=== PATIENT | male | born 1985 | race Caucasian/White ===

== ENCOUNTER 2017-10-23 17:55 | Emergency (ER) | payer SELFPAY ==
[~2017-10-23] VITALS: Ht 193 cm; Wt 115.1 kg
[2017-10-23] MEDS ORDERED: SODIUM CHLORIDE 0.9% 1,000ML IVBOLUS ONE (18:30)
[2017-10-23] MEDS ORDERED: SODIUM CHLORIDE FLUSH 10ML SYR IVF ONE (18:30)
[2017-10-23] MEDS ORDERED: LORazepam 2 MG/ML, 1ML IVPush ONE (18:30)
[2017-10-23] MEDS ORDERED: LORazepam 2 MG/ML, 1ML ONE (18:31)
[2017-10-23 18:37] LABS: HEMATOCRIT 48.1 % (39.2-51.8); HEMOGLOBIN 15.8 g/dL (13.7-18.0); WHITE BLOOD COUNT 6.4 x10^3/uL (3.4-10)
[2017-10-23 18:49] LABS: ASPARTATE AMINO TRANSFERASE 158 U/L (15-37); BLOOD UREA NITROGEN 9 mg/dL (7-18)
[2017-10-23] MEDS ORDERED: CALCIUM GLUCONATE 9.2 MEQ in SODIUM CHLORIDE 0.9% 100 ML IV ONE (19:30)
[2017-10-23] MEDS ORDERED: CALCIUM CARBONATE 500 MG TABLET PO SCH (19:30)
[2017-10-23] MEDS ORDERED: LORazepam 1MG TABLET ONE (20:14)
[2017-10-23] MEDS ORDERED: LORazepam 1MG TABLET PO ONE (20:30)
[2017-10-23 21:20] VITALS: BP 128/72
== END 2017-10-23 21:28 | disposition home or self-care (01) ==
LOC: ED 20:25
DX: F10.20 Alcohol dependence, uncomplicated (principal); F15.10 Other stimulant abuse, uncomplicated; E83.51 Hypocalcemia; E20.9 Hypoparathyroidism, unspecified
CPT/HCPCS: 36415; 80053; 82330; 85025; 93005; 96361; 96365; 96375; 99285; J0610; J2060; J7030

== ENCOUNTER 2017-10-31 21:02 | Emergency (ER) | payer SELFPAY ==
[~2017-10-31] VITALS: Ht 182.9 cm; Wt 100.0 kg
[2017-10-31 21:58] LABS: HEMOGLOBIN 16.5 g/dL (13.7-18.0); WHITE BLOOD COUNT 5.8 x10^3/uL (3.4-10)
[2017-10-31 22:09] LABS: DAU SCREEN DISCLAIMER
[2017-10-31 22:11] LABS: ASPARTATE AMINO TRANSFERASE 100 U/L (15-37); BLOOD UREA NITROGEN 11 mg/dL (7-18)
[2017-10-31 22:18] LABS: ACETAMINOPHEN < 2 mcg/mL (10-30)
[2017-10-31] MEDS ORDERED: ZIPRASIDONE 20 MG INJ IM ONE (22:24)
[2017-10-31] MEDS: ZIPRASIDONE 20 MG INJ IM ONE (22:39)
[2017-11-01 06:01] VITALS: BP 124/79
== END 2017-11-01 07:00 | disposition home or self-care (01) ==
LOC: ED 21:12
DX: E20.0 Idiopathic hypoparathyroidism (principal); F10.20 Alcohol dependence, uncomplicated; F15.20 Other stimulant dependence, uncomplicated
CPT/HCPCS: 36415; 80053; 80307; 80329; 85025; 96372; 99284; J3486; G0479; G0480

== ENCOUNTER 2017-11-18 18:57 | Emergency (ER) | payer OTHER ==
[~2017-11-18] VITALS: Ht 190.5 cm; Wt 112.9 kg
[2017-11-18] MEDS ORDERED: SODIUM CHLORIDE 0.9% 1,000 ML IV ONE (19:23)
[2017-11-18] MEDS ORDERED: ONDANSETRON 2MG/ML, 2ML ONE (19:29)
[2017-11-18] MEDS ORDERED: SODIUM CHLORIDE 0.9% 1,000ML IVBOLUS ONE (19:30)
[2017-11-18] MEDS ORDERED: LORazepam 2 MG/ML, 1ML IVPush ONE (19:30)
[2017-11-18] MEDS ORDERED: LORazepam 2 MG/ML, 1ML ONE (19:30)
[2017-11-18] MEDS ORDERED: SODIUM CHLORIDE FLUSH 10ML SYR IVF ONE (19:30)
[2017-11-18] MEDS ORDERED: ONDANSETRON 2MG/ML, 2ML IVPush ONE (19:30)
[2017-11-18 19:44] LABS: BASOPHILS # (AUTO) 0.08 x10^3/uL (0-0.1); BASOPHILS % (AUTO) 1 % (0-1); EOSINOPHILS # (AUTO) 0.06 x10^3/uL (0-0.4); EOSINOPHILS % (AUTO) 1 % (1-7); LYMPHOCYTES # (AUTO) 1.41 x10^3/uL (1-3.4); LYMPHOCYTES % (AUTO) 16 % (22-44); MD NO; MEAN CORPUSCULAR HEMOGLOBIN 33.1 pg (27.5-34.5); MEAN CORPUSCULAR HGB CONC 34.1 g/dL (33.2-36.2); MEAN CORPUSCULAR VOLUME 97.1 fL (81-97); MEAN PLATELET VOLUME 7.8 fL (7.4-10.4); MONOCYTES # (AUTO) 0.73 x10^3/uL (0.2-0.8); MONOCYTES % (AUTO) 8 % (2-9); NEUTROPHILS # (AUTO) 6.72 x10^3/uL (1.8-6.8); NEUTROPHILS % (AUTO) 75 % (42-75); PLATELET COUNT 279 x10^3/uL (130-400); RED BLOOD COUNT 4.92 x10^6/uL (4.38-5.82); RED CELL DISTRIBUTION WIDTH 13.6 % (9.4-14.8)
[2017-11-18 19:54] LABS: ALANINE AMINOTRANSFERASE 81 U/L (12-78); ALBUMIN 3.6 g/dL (3.4-5.0); ANION GAP 12 mmol/L (5-15); CHLORIDE 106 mmol/L (98-107)
[2017-11-18 19:57] LABS: ALKALINE PHOSPHATASE 116 U/L (45-117); BILIRUBIN,TOTAL 0.6 mg/dL (0.2-1.0); CREATININE 0.97 mg/dL (0.7-1.3)
[2017-11-18] MEDS ORDERED: CALCIUM GLUCONATE 4.6 MEQ in SODIUM CHLORIDE 0.9% 50 ML IV ONE (20:00)
[2017-11-18 22:21] VITALS: BP 122/64
== END 2017-11-18 22:24 | disposition home or self-care (01) ==
LOC: ED 21:29
DX: E86.0 Dehydration (principal); J20.8 Acute bronchitis due to other specified organisms; B96.89 Other specified bacterial agents as the cause of diseases classified elsewhere; E83.51 Hypocalcemia; F17.200 Nicotine dependence, unspecified, uncomplicated
CPT/HCPCS: 36415; 74022; 80053; 82330; 83605; 83690; 84484; 85025; 93005; 96361; 96365; 96375; 99285; J0610; J2060; J2405; J7030

== ENCOUNTER 2018-03-30 15:42 | Emergency (ER) | payer MEDICAID ==
[~2018-03-30] VITALS: Ht 193 cm; Wt 110.0 kg
[2018-03-30] MEDS ORDERED: LEVO25TA2 PO (16:04)
[2018-03-30] MEDS ORDERED: DIPH,PERTUSS(ACELL),TET VAC/PF 0.5 ML IM-VACC ONE (16:30)
[2018-03-30 18:12] VITALS: BP 131/84
== END 2018-03-30 18:36 | disposition home or self-care (01) ==
LOC: ED 17:57
DX: S06.0X0A Concussion without loss of consciousness, initial encounter (principal); S02.2XXA Fracture of nasal bones, initial encounter for closed fracture; S16.1XXA Strain of muscle, fascia and tendon at neck level, initial encounter; E83.51 Hypocalcemia; F10.229 Alcohol dependence with intoxication, unspecified; F17.200 Nicotine dependence, unspecified, uncomplicated; F15.10 Other stimulant abuse, uncomplicated; Y93.89 Activity, other specified; Y92.89 Other specified places as the place of occurrence of the external cause; Y99.8 Other external cause status; Y04.8XXA Assault by other bodily force, initial encounter; Z79.899 Other long term (current) drug therapy
CPT/HCPCS: 36415; 70450; 70486; 72125; 80307; 82330; 99285

== ENCOUNTER 2018-11-01 16:01 | Inpatient (IN) | payer MEDICAID ==
[~2018-11-01] VITALS: Ht 193 cm; Wt 102.9 kg
[~2018-11-01 16:01] MED LIST: LEVO25TA2 PO
--- NOTE | 2018-11-01 16:16 | NUR ---
PT BIB [facility] FROM [facility] FOR SEIZURE LASTING 10 TO 15 MINUTES. PT WAS AT [facility] FOR 3 DAYS FOR ETOH WITHDRAWAL. PT WAS FOUND T[facility]IC [facility]ONIC AND WAS GIVEN 5 MG VERSED IM. PT WAS GIVEN HIS DAILY VAILUM AT [facility] TODAY. PT ALERT TO VERBAL GCS 13. FS 76, 02 SAT 94% RA. PT CONNECTED TO MONITOR. CALL LIGHT WITHIN REACH. SEIZURE PRECAUTIONS IN PLACE. PT IS ALERT TO PERSON, PLACE, AND EVENT.
[2018-11-01 16:56] LABS: BASOPHILS # (AUTO) 0.04 x10^3/uL (0-0.1); BASOPHILS % (AUTO) 1 % (0-1); EOSINOPHILS # (AUTO) 0.29 x10^3/uL (0-0.4); EOSINOPHILS % (AUTO) 7 % (1-7); LYMPHOCYTES # (AUTO) 1.17 x10^3/uL (1-3.4); LYMPHOCYTES % (AUTO) 29 % (22-44); MD NO; MEAN CORPUSCULAR HEMOGLOBIN 32.2 pg (27.5-34.5); MEAN CORPUSCULAR HGB CONC 34.4 g/dL (33.2-36.2); MEAN CORPUSCULAR VOLUME 93.5 fL (81-97); MEAN PLATELET VOLUME 8.6 fL (7.4-10.4); MONOCYTES # (AUTO) 0.41 x10^3/uL (0.2-0.8); MONOCYTES % (AUTO) 10 % (2-9); NEUTROPHILS # (AUTO) 2.12 x10^3/uL (1.8-6.8); NEUTROPHILS % (AUTO) 53 % (42-75); PLATELET COUNT 242 x10^3/uL (130-400); RED BLOOD COUNT 4.48 x10^6/uL (4.38-5.82); RED CELL DISTRIBUTION WIDTH 14.1 % (9.4-14.8)
--- NOTE | 2018-11-01 17:05 | NUR ---
PT IS RESTING IN BED, RESPIRATIONS EQUAL AND NON LABORED. NAD. PT IS CONNECTED TO THE MONITOR. CALL LIGHT WITHIN REACH. NEW [employer] STAFF AT BEDSIDE.
[2018-11-01 17:06] LABS: ANION GAP 6 mmol/L (5-15); CALCIUM 7.2 mg/dL (8.5-10.1); CHLORIDE 107 mmol/L (98-107); CREATININE 1.01 mg/dL (0.7-1.3)
--- NOTE | 2018-11-01 17:49 | NUR ---
HOSPITALIST AT BEDSIDE.
[2018-11-01] MEDS ORDERED: DIAZEPAM 5 MG/ML, 2ML IV PRN (18:00)
[2018-11-01] MEDS ORDERED: LORazepam 1MG TABLET PO PRN (18:00)
[2018-11-01] MEDS ORDERED: DOCUSATE 100 MG CAPSULE PO PRN (18:00)
[2018-11-01] MEDS ORDERED: ALUMINUM/MAG/SIMETHICONE 30 ML UDC PO PRN (18:00)
[2018-11-01] MEDS ORDERED: LIDODERM 5% PATCH TD PRN (18:00)
--- NOTE | 2018-11-01 18:03 | NUR ---
PT IS RESTING IN BED, RESPIRATIONS EQUAL AND NON LABORED. NAD. PT IS CONNECTED TO THE MONITOR. CALL LIGHT WITHIN REACH.
--- NOTE | 2018-11-01 18:08 | NUR ---
REPORT GIVEN TO HUMZA GALAN.
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
[2018-11-01 18:34] VITALS: BP 109/72
[2018-11-01] MEDS: BACLOFEN 10 MG TABLET PO SCH (20:56)
[2018-11-01] MEDS: MAGNESIUM CHLORIDE 64 MG TABLET.DR PO SCH (20:56)
[2018-11-01] MEDS: LORazepam 1MG TABLET PO PRN (21:06)
[2018-11-02 00:41] VITALS: BP 112/65
[2018-11-02] MEDS: LEVOTHYROXINE 25 MCG TABLET PO SCH (04:52)
[2018-11-02 06:31] LABS: CALCIUM 7.5 mg/dL (8.5-10.1); CHLORIDE 107 mmol/L (98-107)
[2018-11-02 06:33] LABS: ANION GAP 8 mmol/L (5-15); CREATININE 0.96 mg/dL (0.7-1.3)
[2018-11-02 08:40] VITALS: BP 114/68
[2018-11-02] MEDS: MAGNESIUM CHLORIDE 64 MG TABLET.DR PO SCH ×3 (09:13→21:45)
[2018-11-02] MEDS: BACLOFEN 10 MG TABLET PO SCH ×2 (09:13→21:45)
[2018-11-02] MEDS: FOLIC ACID 1 MG TABLET PO SCH (09:13)
[2018-11-02] MEDS: MULTIVITAMINS/MINERALS TABLET PO SCH (09:13)
[2018-11-02] MEDS ORDERED: CHLORDIAZEPOXIDE 25 MG CAPSULE PO PRN (09:30)
[2018-11-02] MEDS ORDERED: SODIUM CHLORIDE 0.9% 1,000 ML IV ONE (10:00)
[2018-11-02] MEDS ORDERED: CHLORDIAZEPOXIDE 25 MG CAPSULE ONE (10:12)
[2018-11-02] MEDS: LORazepam 1MG TABLET PO PRN ×3 (10:15→21:45)
[2018-11-02] MEDS ORDERED: CHLORDIAZEPOXIDE 25 MG CAPSULE PO ONE (11:00)
[2018-11-02 13:30] VITALS: BP 101/63
[2018-11-02] MEDS ORDERED: LORazepam 2 MG/ML, 1ML ONE (17:17)
[2018-11-02] MEDS: CHLORDIAZEPOXIDE 25 MG CAPSULE PO SCH (17:24)
[2018-11-02] MEDS ORDERED: LORazepam 2 MG/ML, 1ML IVPush ONE (17:30)
[2018-11-02 20:00] VITALS: BP 120/71
[2018-11-03] VITALS (9 sets, daily range): BP systolic 105–123; BP diastolic 64–81
[2018-11-03 04:58] LABS: ALANINE AMINOTRANSFERASE 22 U/L (12-78); ALBUMIN 3.2 g/dL (3.4-5.0); ANION GAP 6 mmol/L (5-15); CALCIUM 7.4 mg/dL (8.5-10.1); CHLORIDE 107 mmol/L (98-107); CREATININE 1.11 mg/dL (0.7-1.3)
[2018-11-03 05:01] LABS: ALKALINE PHOSPHATASE 53 U/L (45-117); BILIRUBIN,TOTAL 0.3 mg/dL (0.2-1.0)
[2018-11-03] MEDS: LEVOTHYROXINE 25 MCG TABLET PO SCH (06:12)
[2018-11-03] MEDS: FOLIC ACID 1 MG TABLET PO SCH (09:36)
[2018-11-03] MEDS: BACLOFEN 10 MG TABLET PO SCH ×2 (09:36→21:34)
[2018-11-03] MEDS: MAGNESIUM CHLORIDE 64 MG TABLET.DR PO SCH ×2 (09:36→17:51)
[2018-11-03] MEDS: MULTIVITAMINS/MINERALS TABLET PO SCH (09:36)
[2018-11-03] MEDS: CHLORDIAZEPOXIDE 25 MG CAPSULE PO SCH ×3 (09:37→21:34)
[2018-11-03] MEDS: LORazepam 1MG TABLET PO PRN ×2 (13:27→14:42)
[2018-11-03] MEDS ORDERED: LORazepam 2 MG/ML, 1ML IV PRN ×6 (17:00→22:30)
[2018-11-03] MEDS ORDERED: LORazepam 2 MG/ML, 1ML IVPush ONE (17:30)
[2018-11-03] MEDS ORDERED: MAGNESIUM SULFATE PMX 2GM/50ML 50 ML IV ONE (20:30)
[2018-11-03] MEDS ORDERED: LORazepam 1MG TABLET PO PRN ×3 (22:30)
[2018-11-03] MEDS ORDERED: LORazepam 0.5MG TABLET PO PRN (22:30)
[2018-11-03 22:35] LABS: BASOPHILS # (AUTO) 0.04 x10^3/uL (0-0.1); BASOPHILS % (AUTO) 1 % (0-1); EOSINOPHILS # (AUTO) 0.24 x10^3/uL (0-0.4); EOSINOPHILS % (AUTO) 4 % (1-7); LYMPHOCYTES # (AUTO) 1.65 x10^3/uL (1-3.4); LYMPHOCYTES % (AUTO) 29 % (22-44); MD NO; MEAN CORPUSCULAR HEMOGLOBIN 32.3 pg (27.5-34.5); MEAN CORPUSCULAR HGB CONC 34.6 g/dL (33.2-36.2); MEAN CORPUSCULAR VOLUME 93.4 fL (81-97); MEAN PLATELET VOLUME 8.6 fL (7.4-10.4); MONOCYTES # (AUTO) 0.55 x10^3/uL (0.2-0.8); MONOCYTES % (AUTO) 10 % (2-9); NEUTROPHILS # (AUTO) 3.18 x10^3/uL (1.8-6.8); NEUTROPHILS % (AUTO) 56 % (42-75); PLATELET COUNT 259 x10^3/uL (130-400); RED BLOOD COUNT 4.75 x10^6/uL (4.38-5.82); RED CELL DISTRIBUTION WIDTH 13.9 % (9.4-14.8)
[2018-11-03 22:36] LABS: ALANINE AMINOTRANSFERASE 24 U/L (12-78); ALBUMIN 3.3 g/dL (3.4-5.0); ANION GAP 8 mmol/L (5-15); CALCIUM 7.3 mg/dL (8.5-10.1); CHLORIDE 107 mmol/L (98-107)
[2018-11-03 22:39] LABS: ALKALINE PHOSPHATASE 54 U/L (45-117); BILIRUBIN,TOTAL 0.3 mg/dL (0.2-1.0); TOTAL PROTEIN 6.3 g/dL (6.4-8.2)
[2018-11-04 00:03] VITALS: BP 107/68
[2018-11-04] MEDS: LORazepam 2 MG/ML, 1ML IV PRN ×4 (02:02→20:30)
[2018-11-04 04:12] VITALS: BP 112/64
[2018-11-04] MEDS: MULTIVITAMINS/MINERALS TABLET PO SCH (08:21)
[2018-11-04] MEDS: BACLOFEN 10 MG TABLET PO SCH ×2 (08:21→20:30)
[2018-11-04] MEDS: FOLIC ACID 1 MG TABLET PO SCH (08:21)
[2018-11-04] MEDS: LEVOTHYROXINE 25 MCG TABLET PO SCH (08:21)
[2018-11-04] MEDS: CHLORDIAZEPOXIDE 25 MG CAPSULE PO SCH ×3 (08:22→22:46)
[2018-11-04] MEDS: MAGNESIUM CHLORIDE 70MG TAB DR PO SCH ×3 (08:22→22:47)
[2018-11-04] MEDS ORDERED: NICOTINE 14MG/24 HR PATCH.TD24 ONE (09:16)
[2018-11-04] MEDS: NICOTINE 14MG/24 HR PATCH.TD24 TD SCH (09:18)
[2018-11-04 09:40] VITALS: BP 103/61
[2018-11-04] MEDS ORDERED: VALPROATE SODIUM 1,000 MG in SODIUM CHLORIDE 0.9% 100 ML IV ONE (10:00)
[2018-11-04 14:00] VITALS: BP 125/71
[2018-11-04 19:48] VITALS: BP 116/69
[2018-11-04] MEDS: VALPROIC ACID 250 MG CAPSULE PO SCH (20:30)
[2018-11-05 02:00] VITALS: BP 107/63
[2018-11-05] MEDS: LORazepam 2 MG/ML, 1ML IV PRN ×2 (03:24→17:33)
[2018-11-05] MEDS: LEVOTHYROXINE 25 MCG TABLET PO SCH (05:48)
[2018-11-05 05:59] LABS: BASOPHILS # (AUTO) 0.05 x10^3/uL (0-0.1); BASOPHILS % (AUTO) 1 % (0-1); EOSINOPHILS # (AUTO) 0.23 x10^3/uL (0-0.4); EOSINOPHILS % (AUTO) 5 % (1-7); LYMPHOCYTES # (AUTO) 1.54 x10^3/uL (1-3.4); LYMPHOCYTES % (AUTO) 30 % (22-44); MD NO; MEAN CORPUSCULAR HEMOGLOBIN 31.9 pg (27.5-34.5); MEAN CORPUSCULAR HGB CONC 34.4 g/dL (33.2-36.2); MEAN CORPUSCULAR VOLUME 92.8 fL (81-97); MEAN PLATELET VOLUME 8.6 fL (7.4-10.4); MONOCYTES # (AUTO) 0.51 x10^3/uL (0.2-0.8); MONOCYTES % (AUTO) 10 % (2-9); NEUTROPHILS # (AUTO) 2.74 x10^3/uL (1.8-6.8); NEUTROPHILS % (AUTO) 54 % (42-75); PLATELET COUNT 226 x10^3/uL (130-400); RED BLOOD COUNT 4.86 x10^6/uL (4.38-5.82); RED CELL DISTRIBUTION WIDTH 13.6 % (9.4-14.8)
[2018-11-05 06:06] LABS: ANION GAP 8 mmol/L (5-15); CALCIUM 7.4 mg/dL (8.5-10.1); CHLORIDE 108 mmol/L (98-107); CREATININE 1.05 mg/dL (0.7-1.3)
[2018-11-05 07:01] VITALS: BP 99/59
[2018-11-05] MEDS: NICOTINE 14MG/24 HR PATCH.TD24 TD SCH (09:35)
[2018-11-05] MEDS: VALPROIC ACID 250 MG CAPSULE PO SCH ×2 (09:35→21:19)
[2018-11-05] MEDS: CHLORDIAZEPOXIDE 25 MG CAPSULE PO SCH (09:35)
[2018-11-05] MEDS: FOLIC ACID 1 MG TABLET PO SCH (09:35)
[2018-11-05] MEDS: MULTIVITAMINS/MINERALS TABLET PO SCH (09:35)
[2018-11-05] MEDS: BACLOFEN 10 MG TABLET PO SCH ×2 (09:35→21:19)
[2018-11-05] MEDS: LORazepam 1MG TABLET PO PRN ×2 (11:44→21:20)
[2018-11-05 12:20] VITALS: BP 105/64
[2018-11-05] MEDS ORDERED: THIAMINE 200 MG in SODIUM CHLORIDE 0.9% 50 ML IV ONE (13:30)
[2018-11-05] MEDS: CHLORDIAZEPOXIDE 10 MG CAPSULE PO SCH ×2 (16:41→21:20)
[2018-11-05 17:38] VITALS: BP 127/81
[2018-11-05 20:00] VITALS: BP 110/69
[2018-11-05 21:20] VITALS: BP 128/70
[2018-11-06 01:51] VITALS: BP 109/65
[2018-11-06] MEDS: LORazepam 2 MG/ML, 1ML IV PRN (02:19)
[2018-11-06] MEDS: LEVOTHYROXINE 25 MCG TABLET PO SCH (06:29)
[2018-11-06 06:32] VITALS: BP 106/63
[2018-11-06] MEDS: FOLIC ACID 1 MG TABLET PO SCH (08:29)
[2018-11-06] MEDS: THIAMINE 100MG TABLET PO SCH ×2 (08:30→12:30)
[2018-11-06] MEDS: VALPROIC ACID 250 MG CAPSULE PO SCH ×3 (08:30→20:34)
[2018-11-06] MEDS: BACLOFEN 10 MG TABLET PO SCH (08:30)
[2018-11-06] MEDS: CHLORDIAZEPOXIDE 10 MG CAPSULE PO SCH (08:30)
[2018-11-06] MEDS: NICOTINE 14MG/24 HR PATCH.TD24 TD SCH (08:30)
[2018-11-06] MEDS: MULTIVITAMINS/MINERALS TABLET PO SCH (08:30)
[2018-11-06 12:17] VITALS: BP 94/58
[2018-11-06] MEDS ORDERED: CALCIUM CARBONATE 500 MG TABLET PO PRN (13:30)
[2018-11-06] MEDS ORDERED: CALC0.25 PO (13:40)
[2018-11-06] MEDS ORDERED: ONDANSETRON ODT 4 MG ONE (14:09)
[2018-11-06] MEDS: LORazepam 1MG TABLET PO PRN ×2 (14:11→22:30)
[2018-11-06] MEDS ORDERED: ONDANSETRON ODT 4 MG PO PRN (14:30)
[2018-11-06 20:00] VITALS: BP 112/68
[2018-11-06 23:03] VITALS: BP 101/60
[2018-11-06] MEDS ORDERED: LORazepam 2 MG/ML, 1ML IVPush PRN (23:30)
[2018-11-07 02:00] VITALS: BP 97/60
[2018-11-07 04:54] LABS: BASOPHILS # (AUTO) 0.01 x10^3/uL (0-0.1); BASOPHILS % (AUTO) 0 % (0-1); EOSINOPHILS # (AUTO) 0.25 x10^3/uL (0-0.4); EOSINOPHILS % (AUTO) 5 % (1-7); LYMPHOCYTES # (AUTO) 1.96 x10^3/uL (1-3.4); LYMPHOCYTES % (AUTO) 38 % (22-44); MD NO; MEAN CORPUSCULAR HEMOGLOBIN 31.3 pg (27.5-34.5); MEAN CORPUSCULAR HGB CONC 33.5 g/dL (33.2-36.2); MEAN CORPUSCULAR VOLUME 93.4 fL (81-97); MEAN PLATELET VOLUME 8.7 fL (7.4-10.4); MONOCYTES # (AUTO) 0.48 x10^3/uL (0.2-0.8); MONOCYTES % (AUTO) 9 % (2-9); NEUTROPHILS # (AUTO) 2.49 x10^3/uL (1.8-6.8); NEUTROPHILS % (AUTO) 48 % (42-75); PLATELET COUNT 265 x10^3/uL (130-400); RED BLOOD COUNT 4.83 x10^6/uL (4.38-5.82); RED CELL DISTRIBUTION WIDTH 13.5 % (9.4-14.8)
[2018-11-07 05:06] LABS: ANION GAP 4 mmol/L (5-15); CALCIUM 7.6 mg/dL (8.5-10.1); CHLORIDE 108 mmol/L (98-107); CREATININE 0.98 mg/dL (0.7-1.3)
[2018-11-07] MEDS: LEVOTHYROXINE 25 MCG TABLET PO SCH (05:51)
[2018-11-07 06:33] VITALS: BP 100/63
[2018-11-07] MEDS: NICOTINE 14MG/24 HR PATCH.TD24 TD SCH (08:45)
[2018-11-07] MEDS: CALCITRIOL 0.25 MCG CAPSULE PO SCH (08:46)
[2018-11-07] MEDS: VALPROIC ACID 250 MG CAPSULE PO SCH ×3 (08:46→20:30)
[2018-11-07] MEDS: MULTIVITAMINS/MINERALS TABLET PO SCH (08:46)
[2018-11-07] MEDS: FOLIC ACID 1 MG TABLET PO SCH (08:46)
[2018-11-07] MEDS: THIAMINE 100MG TABLET PO SCH ×2 (08:46→09:00)
[2018-11-07 13:35] VITALS: BP 98/59
[2018-11-07] MEDS: LORazepam 1MG TABLET PO PRN ×2 (15:52→21:44)
[2018-11-07] MEDS: ACETAMINOPHEN 325 MG TABLET PO PRN (16:20)
[2018-11-07] MEDS: HEPARIN 5,000 UNITS/ML, 1ML SQ SCH (16:30)
[2018-11-07 20:00] VITALS: BP 111/71
[2018-11-08 01:08] VITALS: BP 101/59
[2018-11-08] MEDS: HEPARIN 5,000 UNITS/ML, 1ML SQ SCH ×3 (01:09→16:30)
[2018-11-08] MEDS: LEVOTHYROXINE 25 MCG TABLET PO SCH (05:39)
[2018-11-08 08:13] VITALS: BP 109/63
[2018-11-08] MEDS: THIAMINE 100MG TABLET PO SCH (09:00)
[2018-11-08] MEDS: CALCITRIOL 0.25 MCG CAPSULE PO SCH (09:19)
[2018-11-08] MEDS: NICOTINE 14MG/24 HR PATCH.TD24 TD SCH (09:20)
[2018-11-08] MEDS: LORazepam 1MG TABLET PO PRN ×3 (09:20→21:30)
[2018-11-08] MEDS: MULTIVITAMINS/MINERALS TABLET PO SCH (09:20)
[2018-11-08] MEDS: FOLIC ACID 1 MG TABLET PO SCH (09:20)
[2018-11-08] MEDS: ACETAMINOPHEN 325 MG TABLET PO PRN ×2 (09:20→14:37)
[2018-11-08] MEDS: VALPROIC ACID 250 MG CAPSULE PO SCH ×3 (09:20→21:29)
[2018-11-08 09:52] LABS: MEAN CORPUSCULAR HGB CONC 34.3 g/dL (33.2-36.2); MEAN CORPUSCULAR VOLUME 93.3 fL (81-97); MEAN PLATELET VOLUME 8.9 fL (7.4-10.4); PLATELET COUNT 243 x10^3/uL (130-400); RED BLOOD COUNT 4.58 x10^6/uL (4.38-5.82); RED CELL DISTRIBUTION WIDTH 13.6 % (9.4-14.8)
[2018-11-08 10:03] LABS: ALANINE AMINOTRANSFERASE 24 U/L (12-78); ALBUMIN 3.2 g/dL (3.4-5.0); ANION GAP 6 mmol/L (5-15); CALCIUM 7.6 mg/dL (8.5-10.1); CHLORIDE 107 mmol/L (98-107); CREATININE 1.17 mg/dL (0.7-1.3)
[2018-11-08 10:05] LABS: ALKALINE PHOSPHATASE 48 U/L (45-117); BILIRUBIN,TOTAL 0.4 mg/dL (0.2-1.0); TOTAL PROTEIN 6.2 g/dL (6.4-8.2)
[2018-11-08 10:37] LABS: BASOPHILS # (AUTO) 0.04 x10^3/uL (0-0.1); BASOPHILS % (AUTO) 1 % (0-1); EOSINOPHILS # (AUTO) 0.23 x10^3/uL (0-0.4); EOSINOPHILS % (AUTO) 6 % (1-7); LYMPHOCYTES # (AUTO) 1.44 x10^3/uL (1-3.4); LYMPHOCYTES % (AUTO) 35 % (22-44); MD SCAN; MONOCYTES # (AUTO) 0.44 x10^3/uL (0.2-0.8); MONOCYTES % (AUTO) 11 % (2-9); NEUTROPHILS # (AUTO) 1.97 x10^3/uL (1.8-6.8); NEUTROPHILS % (AUTO) 48 % (42-75)
[2018-11-08] MEDS ORDERED: VALP250C PO (13:01)
[2018-11-08] MEDS ORDERED: LEVO25TA2 PO (13:01)
[2018-11-08 14:40] VITALS: BP 112/68
[2018-11-08] MEDS ORDERED: ORAJEL 7GM TUBE MM PRN (16:00)
[2018-11-08 18:52] VITALS: BP 118/71
[2018-11-09 02:44] VITALS: BP 106/63
[2018-11-09] MEDS: LORazepam 1MG TABLET PO PRN ×4 (03:08→17:49)
[2018-11-09] MEDS: LEVOTHYROXINE 25 MCG TABLET PO SCH (05:14)
[2018-11-09] MEDS: HEPARIN 5,000 UNITS/ML, 1ML SQ SCH ×2 (05:14→14:03)
[2018-11-09 07:13] VITALS: BP 108/60
[2018-11-09] MEDS: MULTIVITAMINS/MINERALS TABLET PO SCH (08:21)
[2018-11-09] MEDS: VALPROIC ACID 250 MG CAPSULE PO SCH ×2 (08:22→16:16)
[2018-11-09] MEDS: FOLIC ACID 1 MG TABLET PO SCH (08:22)
[2018-11-09] MEDS: CALCITRIOL 0.25 MCG CAPSULE PO SCH (08:22)
[2018-11-09] MEDS: THIAMINE 100MG TABLET PO SCH (08:23)
[2018-11-09] MEDS: NICOTINE 14MG/24 HR PATCH.TD24 TD SCH (08:24)
[2018-11-09 13:52] VITALS: BP 111/68
== END 2018-11-09 18:04 | DRG 101 ==
LOC: ED 16:35 → EDIP 17:29 → 4WST 18:27 → 4EST 11-02 17:39
PROVIDERS: ADMIT Internal Medicine; ATTEND Internal Medicine
DX: R56.9 Unspecified convulsions (principal); F10.239 Alcohol dependence with withdrawal, unspecified; R45.851 Suicidal ideations; F17.203 Nicotine dependence unspecified, with withdrawal; E03.9 Hypothyroidism, unspecified; E20.9 Hypoparathyroidism, unspecified; F32.9 Major depressive disorder, single episode, unspecified; F41.9 Anxiety disorder, unspecified; F99 Mental disorder, not otherwise specified
CPT/HCPCS: 36415; 70450; 70553; 80048; 80053; 80164; 82140; 82306; 82330; 82607; 82962; 83735; 84100; 84443; 85025; 95819; G0378; J1644; J3360; J3411; Q0162; J2060; J3475; J7030

== ENCOUNTER 2019-01-26 00:39 | Emergency (ER) | payer MEDICAID ==
[~2019-01-26] VITALS: Ht 193 cm; Wt 104.0 kg
[~2019-01-26 00:39] MED LIST changes: +CALC0.25 PO; +VALP250C PO
[2019-01-26 00:40] VITALS: BP 107/67
--- NOTE | 2019-01-26 01:44 | NUR ---
Patient/Caregiver given discharge instructions and they have confirmed that they understand the instructions. Patient ambulatory with steady gait.
== END 2019-01-26 01:46 | disposition home or self-care (01) ==
LOC: ED 01:23
DX: F10.129 Alcohol abuse with intoxication, unspecified (principal); Z72.9 Problem related to lifestyle, unspecified; Z90.49 Acquired absence of other specified parts of digestive tract
CPT/HCPCS: 99283

== ENCOUNTER 2019-03-30 18:34 | Inpatient (IN) | payer MEDICAID ==
[~2019-03-30] VITALS: Ht 193 cm; Wt 100.9 kg
--- NOTE | 2019-03-30 19:00 | NUR ---
erp at bs
--- NOTE | 2019-03-30 19:03 | NUR ---
PT CHANGING INTO GOWN IN [facility]. PT EDUCATED ON ER PROCESS AND VERBALIZES UNDERSTANDING.
[2019-03-30] MEDS ORDERED: LORazepam 2 MG/ML, 1ML ONE ×3 (19:19→19:51)
[2019-03-30] MEDS ORDERED: SODIUM CHLORIDE 0.9% 1,000ML IVBOLUS ONE (19:30)
[2019-03-30] MEDS ORDERED: THIAMINE 100 MG in SODIUM CHLORIDE 0.9% 50 ML IVPB ONE (19:30)
[2019-03-30] MEDS ORDERED: SODIUM CHLORIDE FLUSH 10ML SYR IVF ONE (19:30)
[2019-03-30 19:39] LABS: MEAN CORPUSCULAR HEMOGLOBIN 32.4 pg (27.5-34.5); MEAN CORPUSCULAR HGB CONC 33.2 g/dL (33.2-36.2); MEAN CORPUSCULAR VOLUME 97.6 fL (81-97); MEAN PLATELET VOLUME 7.5 fL (7.4-10.4); PLATELET COUNT 281 x10^3/uL (130-400); RED BLOOD COUNT 4.67 x10^6/uL (4.38-5.82); RED CELL DISTRIBUTION WIDTH 15.2 % (9.4-14.8)
[2019-03-30 19:51] LABS: BASOPHILS # (AUTO) 0.03 x10^3/uL (0-0.1); BASOPHILS % (AUTO) 1 % (0-1); EOSINOPHILS % (AUTO) 4 % (1-7); LYMPHOCYTES % (AUTO) 44 % (22-44); MONOCYTES % (AUTO) 10 % (2-9); NEUTROPHILS # (AUTO) 1.21 x10^3/uL (1.8-6.8); NEUTROPHILS % (AUTO) 41 % (42-75)
[2019-03-30 19:52] LABS: MD SCAN
[2019-03-30 19:54] LABS: ALBUMIN 3.4 g/dL (3.4-5.0); ANION GAP 8 mmol/L (5-15); CALCIUM 6.7 mg/dL (8.5-10.1); CHLORIDE 110 mmol/L (98-107); CREATININE 0.91 mg/dL (0.7-1.3)
[2019-03-30] MEDS: LORazepam 2 MG/ML, 1ML IVPush PRN ×3 (20:05→20:18)
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
[2019-03-30] MEDS ORDERED: CALCIUM GLUCONATE 9.2 MEQ in SODIUM CHLORIDE 0.9% 100 ML IV ONE (20:30)
[2019-03-30] MEDS ORDERED: DOCUSATE 100 MG CAPSULE PO PRN (21:00)
[2019-03-30] MEDS ORDERED: LIDODERM 5% PATCH TD PRN (21:00)
[2019-03-30] MEDS ORDERED: LORazepam 2 MG/ML, 1ML IV PRN ×2 (21:00)
[2019-03-30] MEDS ORDERED: LABETALOL 5MG/ML, 20ML IV PRN (21:00)
[2019-03-30] MEDS ORDERED: ONDANSETRON 2MG/ML, 2ML IV PRN (21:00)
[2019-03-30] MEDS ORDERED: ALUMINUM/MAG/SIMETHICONE 30 ML UDC PO PRN (21:00)
[2019-03-30] MEDS ORDERED: PHARMACY INSTRUCTION MC PRN (21:00)
--- NOTE | 2019-03-30 21:08 | NUR ---
ATTEMPTED TO REACH NURSE FOR REPORT. REMAINED ON HOLD. WILL ATTEMPT REPORT AGAIN.
--- NOTE | 2019-03-30 21:21 | NUR ---
PT REPORT CALLED TO ADAMA SUMNER. ALL QUESTIONS ANSWERED. TECH PAGED FOR TRANSPORT AT THIS TIME.
[2019-03-30 21:29] LABS: ALBUMIN 3.4 g/dL (3.4-5.0); BILIRUBIN, DIRECT 0.1 mg/dL (0.1-0.2)
[2019-03-30 21:32] LABS: BILIRUBIN,INDIRECT 0.1 mg/dL (0.0-2.0); BILIRUBIN,TOTAL 0.2 mg/dL (0.2-1.0); TOTAL PROTEIN 6.7 g/dL (6.4-8.2)
[2019-03-30 22:41] VITALS: BP 114/71
[2019-03-30] MEDS: MVI ADULT 10 ML, FOLIC ACID 1 MG in D5%-0.45% NACL 1,000 ML IV SCH (22:46)
[2019-03-31] MEDS: VALPROATE SODIUM 500 MG in DEXTROSE 5% 100 ML IV SCH ×3 (00:21→21:02)
[2019-03-31 01:25] VITALS: BP 119/75
[2019-03-31 05:18] LABS: CHLORIDE 109 mmol/L (98-107); MEAN CORPUSCULAR HEMOGLOBIN 32.5 pg (27.5-34.5); MEAN CORPUSCULAR HGB CONC 33.2 g/dL (33.2-36.2); MEAN PLATELET VOLUME 7.4 fL (7.4-10.4); PLATELET COUNT 199 x10^3/uL (130-400); RED BLOOD COUNT 4.17 x10^6/uL (4.38-5.82); RED CELL DISTRIBUTION WIDTH 15.3 % (9.4-14.8)
[2019-03-31 05:40] LABS: ALANINE AMINOTRANSFERASE 94 U/L (12-78); ALBUMIN 2.8 g/dL (3.4-5.0); ALKALINE PHOSPHATASE 67 U/L (45-117); ANION GAP 7 mmol/L (5-15); BILIRUBIN,TOTAL 0.4 mg/dL (0.2-1.0); CALCIUM 6.6 mg/dL (8.5-10.1); CREATININE 0.82 mg/dL (0.7-1.3); TOTAL PROTEIN 5.6 g/dL (6.4-8.2)
[2019-03-31 05:42] LABS: BASOPHILS # (AUTO) 0.02 x10^3/uL (0-0.1); BASOPHILS % (AUTO) 1 % (0-1); EOSINOPHILS # (AUTO) 0.13 x10^3/uL (0-0.4); EOSINOPHILS % (AUTO) 3 % (1-7); LYMPHOCYTES # (AUTO) 1.08 x10^3/uL (1-3.4); LYMPHOCYTES % (AUTO) 27 % (22-44); MD SCAN; MONOCYTES # (AUTO) 0.35 x10^3/uL (0.2-0.8); MONOCYTES % (AUTO) 9 % (2-9); NEUTROPHILS # (AUTO) 2.42 x10^3/uL (1.8-6.8); NEUTROPHILS % (AUTO) 60 % (42-75)
[2019-03-31] MEDS ORDERED: CALCIUM GLUCONATE 4.6 MEQ/10 ML IVPush ONE (08:30)
[2019-03-31] MEDS ORDERED: POTASSIUM PHOSPHATE 44 MEQ in SODIUM CHLORIDE 0.9% 500 ML IV ONE (08:30)
[2019-03-31] MEDS ORDERED: MAGNESIUM SULFATE 6 GM in SODIUM CHLORIDE 0.9% 150 ML IV ONE (08:30)
[2019-03-31 08:59] VITALS: BP 104/69
[2019-03-31] MEDS ORDERED: NICOTINE 14MG/24 HR PATCH.TD24 TD ONE (09:00)
[2019-03-31] MEDS ORDERED: CALCIUM GLUCONATE 4.6 MEQ in SODIUM CHLORIDE 0.9% 50 ML IV ONE (09:00)
[2019-03-31] MEDS ORDERED: LORazepam 2 MG/ML, 1ML IVPush PRN (09:00)
[2019-03-31] MEDS: MULTIVITAMINS/MINERALS TABLET PO SCH (09:09)
[2019-03-31] MEDS: LORazepam 2 MG/ML, 1ML IV PRN ×2 (09:19→21:02)
[2019-03-31 12:50] VITALS: BP 122/80
[2019-03-31 13:39] LABS: AMPHETAMINE SCREEN, URINE Positive (Negative); BARBITURATE SCREEN, URINE Negative (Negative); BENZODIAZEPINE SCREEN, URINE Positive (Negative); CANNABINOID SCREEN, URINE Positive (Negative); COCAINE SCREEN, URINE Negative (Negative); METHADONE SCREEN, URINE Negative (Negative); OPIATE SCREEN, URINE Negative (Negative)
[2019-03-31 19:24] VITALS: BP 119/70
[2019-03-31] MEDS: MVI ADULT 10 ML, FOLIC ACID 1 MG in D5%-0.45% NACL 1,000 ML IV SCH (23:16)
[2019-04-01 00:53] VITALS: BP 116/77
[2019-04-01] MEDS: LORazepam 2 MG/ML, 1ML IV PRN ×6 (04:13→22:36)
[2019-04-01] MEDS: VALPROATE SODIUM 500 MG in DEXTROSE 5% 100 ML IV SCH ×3 (05:18→21:19)
[2019-04-01 06:40] LABS: MEAN CORPUSCULAR HEMOGLOBIN 31.3 pg (27.5-34.5); MEAN CORPUSCULAR HGB CONC 32.2 g/dL (33.2-36.2); MEAN CORPUSCULAR VOLUME 97.1 fL (81-97); MEAN PLATELET VOLUME 7.8 fL (7.4-10.4); PLATELET COUNT 199 x10^3/uL (130-400); RED BLOOD COUNT 4.27 x10^6/uL (4.38-5.82); RED CELL DISTRIBUTION WIDTH 14.9 % (9.4-14.8)
[2019-04-01 06:47] LABS: ALANINE AMINOTRANSFERASE 79 U/L (12-78); ALBUMIN 2.7 g/dL (3.4-5.0); ANION GAP 7 mmol/L (5-15); CALCIUM 6.9 mg/dL (8.5-10.1); CHLORIDE 109 mmol/L (98-107); CREATININE 0.66 mg/dL (0.7-1.3)
[2019-04-01 06:49] LABS: ALKALINE PHOSPHATASE 77 U/L (45-117); BILIRUBIN,TOTAL 0.6 mg/dL (0.2-1.0); TOTAL PROTEIN 5.6 g/dL (6.4-8.2)
[2019-04-01 07:24] VITALS: BP 115/76
[2019-04-01 07:38] LABS: BASOPHILS # (AUTO) 0.04 x10^3/uL (0-0.1); BASOPHILS % (AUTO) 2 % (0-1); EOSINOPHILS # (AUTO) 0.18 x10^3/uL (0-0.4); EOSINOPHILS % (AUTO) 7 % (1-7); LYMPHOCYTES # (AUTO) 0.64 x10^3/uL (1-3.4); LYMPHOCYTES % (AUTO) 26 % (22-44); MD SCAN; MONOCYTES # (AUTO) 0.26 x10^3/uL (0.2-0.8); MONOCYTES % (AUTO) 10 % (2-9); NEUTROPHILS # (AUTO) 1.38 x10^3/uL (1.8-6.8); NEUTROPHILS % (AUTO) 55 % (42-75)
[2019-04-01] MEDS ORDERED: THIAMINE 100 MG in DEXTROSE 5% 50 ML IVPB SCH (09:00)
[2019-04-01] MEDS: POTASSIUM CHLORIDE 20 MEQ TAB.ER.PRT PO SCH ×2 (10:10→14:07)
[2019-04-01] MEDS: MULTIVITAMINS/MINERALS TABLET PO SCH (10:10)
[2019-04-01] MEDS: MVI ADULT 10 ML, FOLIC ACID 1 MG in D5%-0.45% NACL 1,000 ML IV SCH (11:57)
[2019-04-01] MEDS ORDERED: FOLIC ACID 1 MG TABLET ONE (14:21)
[2019-04-01] MEDS: FOLIC ACID 1 MG TABLET PO SCH (14:25)
[2019-04-01] MEDS: MULTIVITAMIN 1 TABLET PO SCH (14:25)
[2019-04-01] MEDS: D5%-0.45% NACL 1,000 ML IV SCH (18:08)
[2019-04-01 19:04] VITALS: BP 101/61
[2019-04-01] MEDS: THIAMINE 100MG TABLET PO SCH (21:19)
[2019-04-02] MEDS: LORazepam 2 MG/ML, 1ML IV PRN ×4 (00:40→05:16)
[2019-04-02 02:48] VITALS: BP 14/74
[2019-04-02] MEDS: VALPROATE SODIUM 500 MG in DEXTROSE 5% 100 ML IV SCH (05:15)
[2019-04-02] MEDS: D5%-0.45% NACL 1,000 ML IV SCH (05:15)
[2019-04-02 05:51] LABS: ANION GAP 5 mmol/L (5-15); CALCIUM 7.5 mg/dL (8.5-10.1); CHLORIDE 109 mmol/L (98-107)
[2019-04-02 05:52] LABS: CREATININE 0.73 mg/dL (0.7-1.3)
[2019-04-02 08:01] VITALS: BP 106/62
[2019-04-02] MEDS: MULTIVITAMINS/MINERALS TABLET PO SCH (08:06)
[2019-04-02] MEDS: FOLIC ACID 1 MG TABLET PO SCH (08:06)
[2019-04-02] MEDS: THIAMINE 100MG TABLET PO SCH (08:06)
[2019-04-02] MEDS: MULTIVITAMIN 1 TABLET PO SCH (08:06)
[2019-04-02] MEDS ORDERED: THIA100T67 PO (11:50)
[2019-04-02] MEDS ORDERED: MULT1TAB60 PO (11:50)
[2019-04-02] MEDS ORDERED: FOLI-17 PO (11:50)
== END 2019-04-02 12:55 | disposition home or self-care (01) | DRG 641 ==
LOC: ED 19:55 → EDIP 20:18 → 4WST 21:43 → 4NOR 04-01 23:01
PROVIDERS: ADMIT Internal Medicine; ATTEND Internal Medicine
DX: E83.51 Hypocalcemia (principal); R45.851 Suicidal ideations; F10.221 Alcohol dependence with intoxication delirium; F10.231 Alcohol dependence with withdrawal delirium; E21.3 Hyperparathyroidism, unspecified; E87.6 Hypokalemia; E83.42 Hypomagnesemia; E03.9 Hypothyroidism, unspecified; F17.200 Nicotine dependence, unspecified, uncomplicated; Z59.0 Homelessness; D72.819 Decreased white blood cell count, unspecified; F22 Delusional disorders; F41.9 Anxiety disorder, unspecified; Y90.7 Blood alcohol level of 200-239 mg/100 ml
CPT/HCPCS: 36415; 80048; 80053; 80076; 80307; 82040; 82330; 83735; 84100; 84439; 84443; 85025; 93005; 96374; 96375; G0378; J0610; J3411; J3475; J2060; J7030; J7040

== ENCOUNTER 2019-05-02 16:21 | Emergency (ER) | payer MEDICAID ==
[~2019-05-02] VITALS: Ht 193 cm; Wt 98.5 kg
[~2019-05-02 16:21] MED LIST changes: +FOLI-17 PO; +MULT1TAB60 PO; +THIA100T67 PO
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
--- NOTE | 2019-05-02 16:33 | NUR ---
student, Sergio, at bedside to evaluate pt. Pt's now at bedside.
[2019-05-02] MEDS ORDERED: ACETAMINOPHEN 500 MG TABLET PO ONE (17:00)
[2019-05-02] MEDS ORDERED: ACETAMINOPHEN 500 MG TABLET ONE (17:18)
[2019-05-02 17:44] LABS: ANION GAP 9 mmol/L (5-15); CALCIUM 6.8 mg/dL (8.5-10.1); CHLORIDE 110 mmol/L (98-107)
--- NOTE | 2019-05-02 17:50 | NUR ---
PIV removed, tip intact, pt given discharge paperwork, pt continues to sleep on gurmansura, not actively listening to this RN. Pt's , up from the gurney, now collecting items in the room.
[2019-05-02] MEDS ORDERED: PROC10TA2 PO (17:52)
[2019-05-02] MEDS ORDERED: CALC-183 PO (17:52)
--- NOTE | 2019-05-02 18:00 | NUR ---
Pt still sleeping on [place], pt woken up again and told that he has been discharged and it is time to leave, pt nodded his head yes. Pt's found at this time in the cabinet and states "we're taking some bandaids, we need them, pt's with a handful of supplies in her hand." Pt's advised that she may not have any more supplies.
--- NOTE | 2019-05-02 18:10 | NUR ---
A third time, this RN in to advise pt that it is time to leave as he has been discharged. Pt now finally stadning up from [facility] and slowly getting dressed.
[2019-05-02 18:13] VITALS: BP 112/78
== END 2019-05-02 18:18 | disposition home or self-care (01) ==
LOC: ED 18:12
DX: S00.83XA Contusion of other part of head, initial encounter (principal); S00.531A Contusion of lip, initial encounter; S00.12XA Contusion of left eyelid and periocular area, initial encounter; S30.1XXA Contusion of abdominal wall, initial encounter; S30.0XXA Contusion of lower back and pelvis, initial encounter; S50.811A Abrasion of right forearm, initial encounter; S80.812A Abrasion, left lower leg, initial encounter; S80.811A Abrasion, right lower leg, initial encounter; S00.511A Abrasion of lip, initial encounter; G40.909 Epilepsy, unspecified, not intractable, without status epilepticus; E83.51 Hypocalcemia; F20.9 Schizophrenia, unspecified; Z90.49 Acquired absence of other specified parts of digestive tract; F17.200 Nicotine dependence, unspecified, uncomplicated; W18.30XA Fall on same level, unspecified, initial encounter; Y93.89 Activity, other specified; Y92.410 Unspecified street and highway as the place of occurrence of the external cause; Y99.8 Other external cause status
CPT/HCPCS: 36415; 70450; 72125; 80048; 83735; 99284

== ENCOUNTER 2019-05-29 21:47 | Emergency (ER) | payer MEDICAID ==
[~2019-05-29] VITALS: Ht 193 cm; Wt 100.8 kg
[~2019-05-29 21:47] MED LIST changes: +CALC-183 PO; +PROC10TA2 PO
[2019-05-29 22:02] VITALS: BP 117/67
--- NOTE | 2019-05-29 22:20 | NUR ---
Pt ambulates w/ steady gait to froom from triage, ETO requesting withdrawl and detox services, outpatient treatment referrals provided. MD aware of stable status, pending discharge.
--- NOTE | 2019-05-29 22:40 | NUR ---
Pt states "I get vilolent and aggressive when I withdrawl", refuses to leave facility. Security called, pt provided discharge paperwork and education, aggressive gestures, name calling obscene language used towards staff and security, throws paperwork. Pt escorted to front lobby, ambulates w/ steady gait, speech clear.
== END 2019-05-29 22:43 | disposition home or self-care (01) ==
LOC: ED 22:32
DX: F10.220 Alcohol dependence with intoxication, uncomplicated (principal); G40.909 Epilepsy, unspecified, not intractable, without status epilepticus; F20.9 Schizophrenia, unspecified; F17.200 Nicotine dependence, unspecified, uncomplicated; Z90.89 Acquired absence of other organs
CPT/HCPCS: 99281

== ENCOUNTER 2019-06-26 14:53 | Emergency (ER) | payer MEDICAID ==
[~2019-06-26] VITALS: Ht 182.9 cm; Wt 104.5 kg
[2019-06-26 18:02] VITALS: BP 113/58
== END 2019-06-26 18:39 | disposition home or self-care (01) ==
LOC: ED 18:33
DX: F10.229 Alcohol dependence with intoxication, unspecified (principal); Z72.9 Problem related to lifestyle, unspecified; F17.210 Nicotine dependence, cigarettes, uncomplicated; F11.20 Opioid dependence, uncomplicated; R41.82 Altered mental status, unspecified
CPT/HCPCS: 36415; 71046; 80053; 80307; 83735; 84100; 85025; 93005; 99284